=== PATIENT | female | born 1990 | race Caucasian/White ===

== ENCOUNTER 2016-10-06 09:56 | Inpatient (IN) | payer MEDICAID ==
[~2016-10-06] VITALS: Ht 165.1 cm; Wt 104.8 kg
[~2016-10-06 09:56] MED LIST: LIDOCAINE 2% MPF 10 ML EPIDURAL ONE
[2016-10-06 12:11] VITALS: Ht 165.1 cm; Wt 104.8 kg
[2016-10-06] MEDS ORDERED: CEFAZOLIN (LD/OB) 100 ML IV PRN (12:15)
[2016-10-06] MEDS ORDERED: ALU/MAG/SIM 30 ML UDC PO PRN (12:15)
[2016-10-06] MEDS ORDERED: OXYTOCIN 15 UNITS/250 ML NS 250 ML IV SCH ×2 (12:15)
[2016-10-06] MEDS ORDERED: FAMOTIDINE 20 MG INJ IV PRN (12:15)
[2016-10-06] MEDS ORDERED: LIDOCAINE 1% BUFFERED 1 ML SYR INTRADERM PRN (12:15)
[2016-10-06] MEDS ORDERED: METOCLOPRAMIDE 10 MG/2 ML VIAL IV PUSH PRN (12:15)
[2016-10-06] MEDS ORDERED: LIDOCAINE 1% 30 ML PF INFILTRATE ONE (12:15)
[2016-10-06] MEDS ORDERED: FAMOTIDINE 20 MG TAB PO PRN (12:15)
[2016-10-06] MEDS ORDERED: PROMETHAZINE 25 MG/ML VIAL IV PRN (12:15)
[2016-10-06] MEDS ORDERED: ACETAMINOPHEN 325 MG TAB PO PRN (12:15)
[2016-10-06] MEDS ORDERED: TERBUTALINE 1 MG/ML VIAL SUBQ PRN (12:15)
[2016-10-06] MEDS ORDERED: ONDANSETRON 4 MG VIAL IV PUSH PRN (12:15)
[2016-10-06] MEDS ORDERED: ROPIV/FENT 0.2%-2MCG/ML 100 ML EPIDURAL ONE (19:42)
[2016-10-06] MEDS ORDERED: FENTANYL 100 MCG/2 ML AMP ONE (19:43)
[2016-10-06] MEDS: LACT RINGERS 1,000 ML IV SCH (20:02)
[2016-10-06] MEDS ORDERED: ROPIV/FENT 0.2%-2MCG/ML 100 ML EPIDURAL SCH (20:40)
[2016-10-06] MEDS ORDERED: LACT RINGERS 500 ML IV PRN (20:40)
[2016-10-06] MEDS ORDERED: SODIUM CHLORIDE 0.9% 500 ML IV PRN (20:40)
[2016-10-06] MEDS ORDERED: FENTANYL 100 MCG/2 ML AMP EPIDURAL ONE (20:40)
[2016-10-06] MEDS ORDERED: LACT RINGERS 500 ML IV ONE (20:40)
[2016-10-07] VITALS (12 sets, daily range): BP systolic 101–129; RESP 16–20; TEMP 97.5–99.6
[2016-10-07] MEDS: LACT RINGERS 1,000 ML IV SCH (02:01)
[2016-10-07] MEDS ORDERED: MISOPROSTOL 100 MCG TAB ONE (05:18)
[2016-10-07] MEDS ORDERED: TDaP 0.5 ML VIAL IM.VACC ONE (05:25)
[2016-10-07] MEDS ORDERED: MAG HYDROX 30 ML UDC PO PRN (05:25)
[2016-10-07] MEDS ORDERED: OXYTOCIN 15 UNITS/250 ML NS 250 ML IV SCH (05:25)
[2016-10-07] MEDS ORDERED: SALINE FLUSH 10 ML FLUSH PRN (05:25)
[2016-10-07] MEDS ORDERED: ASTRINGENT MED PADS 40'S TOPICAL PRN (05:25)
[2016-10-07] MEDS ORDERED: MISOPROSTOL 100 MCG TAB PO SCH (05:25)
[2016-10-07] MEDS ORDERED: DERMOPLAST SPRAY TOPICAL PRN (05:25)
[2016-10-07] MEDS: Ibuprofen 600 MG TAB PO SCH ×3 (06:31→18:02)
[2016-10-07] MEDS ORDERED: **ONLY ANESTEHSIA MAY ORDER OPIATES WHILE ON EPIDURAL XX SCH (08:00)
[2016-10-07] MEDS: MISOPROSTOL 100 MCG TAB PO SCH ×2 (08:21→12:34)
[2016-10-07] MEDS: DOCUSATE SOD 100 MG CAP PO SCH (08:21)
[2016-10-08] MEDS: Ibuprofen 600 MG TAB PO SCH ×5 (00:28→23:25)
[2016-10-08 01:16] VITALS: BP_SYST 121; RESP 16; TEMP 98.6
[2016-10-08 06:03] VITALS: BP_SYST 106; RESP 18; TEMP 98.3
[2016-10-08] MEDS: DOCUSATE SOD 100 MG CAP PO SCH (09:09)
[2016-10-08 10:30] VITALS: BP_SYST 112; RESP 16; TEMP 98
[2016-10-08 13:04] VITALS: BP_SYST 107; RESP 16; TEMP 98.2
[2016-10-08 16:18] VITALS: BP_SYST 130; RESP 18; TEMP 98.3
[2016-10-09 05:17] VITALS: BP_SYST 117; RESP 20; TEMP 98
[2016-10-09] MEDS: Ibuprofen 600 MG TAB PO SCH ×2 (05:52→11:59)
[2016-10-09] MEDS: DOCUSATE SOD 100 MG CAP PO SCH (09:24)
[2016-10-09 10:00] VITALS: BP_SYST 117; RESP 20; TEMP 98
[2016-10-09 10:15] VITALS: BP_SYST 120; RESP 20; TEMP 98.6
== END 2016-10-09 12:55 | disposition home or self-care (01) | DRG 775 ==
LOC: LDOP 09:56 → LD 11:52 → OB 10-07 13:48
PROVIDERS: ADMIT Obstetrics & Gynecology; ATTEND Obstetrics & Gynecology
PROC: 10E0XZZ Delivery of Products of Conception, External Approach (ICD-10-PCS; principal; 2016-10-07)
PROC: 0UQMXZZ Repair Vulva, External Approach (ICD-10-PCS; 2016-10-07)
PROC: 3E033VJ Introduction of Other Hormone into Peripheral Vein, Percutaneous Approach (ICD-10-PCS; 2016-10-07)
PROC: 10907ZC Drainage of Amniotic Fluid, Therapeutic from Products of Conception, Via Natural or Artificial Opening (ICD-10-PCS; 2016-10-07)
DX: O99.344 Other mental disorders complicating childbirth (principal); F41.9 Anxiety disorder, unspecified; O76 Abnormality in fetal heart rate and rhythm complicating labor and delivery; O48.0 Post-term pregnancy; Z3A.40 40 weeks gestation of pregnancy; O70.0 First degree perineal laceration during delivery; O71.82 Other specified trauma to perineum and vulva; Z37.0 Single live birth
CPT/HCPCS: 80307; 85014; 85018; 85025; 86850; 86900; 86901